=== PATIENT | male | born 1990 | race Caucasian/White ===

== ENCOUNTER 2018-10-18 11:00 | Day surgery (SDC) | payer OTHER ==
[~2018-10-18] VITALS: Ht 167.6 cm; Wt 105.6 kg
[2018-10-18 11:52] VITALS: Ht 167.6 cm; Wt 105.6 kg
[2018-10-18 11:55] VITALS: BP 113/62; PULSE 65; RESP 16
[2018-10-18] MEDS ORDERED: LACTATED RINGER'S 1,000 ML IV SCH (12:00)
[2018-10-18] MEDS ORDERED: IOHEXOL 300MG/ML 30 ML BTL ONE (12:59)
[2018-10-18] MEDS ORDERED: INDOMETHACIN 50 MG SUPP PR STA (13:02)
--- NOTE | 2018-10-18 13:23 | HPN ---
Date/Time of Note Date/Time of Note DATE: 10/18/18 TIME: 13:23 Interval H&P Admission Note Pt. seen H&P reviewed: No system changes BRET JOSEPH MD Oct 18, 2018 13:23
--- NOTE | 2018-10-18 13:40 | PREAC ---
Date/Time of Note Date/Time of Note DATE: 10/18/18 TIME: 13:38 Anesthesia Eval and Record Evaluation Time Pre-Procedure Interview DATE: 10/18/18 TIME: 13:38 Age 28 Sex male NPO: 8 hrs Preoperative diagnosis gall stones Planned procedure ercp Past Medical History Past Medical History: None Surgery & Anesthesia Issues No known issue Meds Anticoagulation: No Beta Angelica within 24 hr: No Reason Beta Angelica not given: Pt. not on B-Angelica No Active Prescriptions or Reported Meds Current Medications Lactated Ringer's 1,000 ml @ 0 mls/hr Q0M IV Last administered on 10/18/18at 12:07; Admin Dose 25 MLS/HR; Start 10/18/18 at 12:00 Meds reviewed: Yes Allergies Coded Allergies: No Known Allergy (Unverified , 10/18/18) Allergies Reviewed: Yes Labs/Studies Labs Reviewed: Reviewed by anesthesiologist Result Diagram: 10/18/18 1130 10/18/18 1130 Laboratory Tests 10/18/18 11:30 test: N/A Pre-procedure Exam Last vitals Vital Signs Date Temp Pulse Resp B/P (MAP) Pulse Ox O2 O2 Flow FiO2 Time Delivery Rate 10/18/18 98.4 65 16 113/62 97 Room Air 11:55 (79) Airway: Adequate mouth opening Mallampati: Mallampati I Teeth: Normal Lung: Normal Heart: Normal Anticipated Difficutly with IV: Anticipate Difficult IV Access ASA Physical Status ASA physical status: 1 Emergency: None Planned Anesthetic General/MAC: ETT Pre-operative Attestations Prior to commencing anesthesia and surgery, the patient was re-evaluated, there was verification of: *The patient's identity *The results of appropriate recent lab work and preoperative vital signs *The above evaluation not changing prior to induction *Anesthetic plan, risk benefits, alternative and complications discussed with patient/family; questions answered; patient/family understands, accepts and wishes to proceed. CHERYL LORENZO MD Oct 18, 2018 13:40
[2018-10-18] MEDS ORDERED: CEFAZOLIN 1 GM INJ ONE (14:00)
[2018-10-18] MEDS ORDERED: DESFLURANE 15 MIN ONE (14:00)
[2018-10-18] MEDS ORDERED: PROPOFOL 20 ML ONE (14:02)
[2018-10-18] MEDS ORDERED: MIDAZOLAM 1 MG/ML 2 ML INJ ONE (14:02)
[2018-10-18] MEDS ORDERED: FENTAnyl 50 MCG/ML VIAL ONE ×2 (14:02→14:46)
[2018-10-18] MEDS ORDERED: ROCURONIUM 50 MG INJ ONE (14:02)
[2018-10-18] MEDS ORDERED: GLUCAGON 1 MG INJ ONE ×2 (14:30→14:35)
[2018-10-18] MEDS ORDERED: SUGAMMADEX SODIUM 200 MG/2 ML VIAL IV ONE (15:20)
[2018-10-18 15:35] VITALS: BP 149/90; PULSE 83; RESP 16
--- NOTE | 2018-10-18 15:35 | PAC ---
Date/Time of Note Date/Time of Note DATE: 10/18/18 TIME: 15:34 Post-Anesthesia Notes Post-Anesthesia Note Last documented vital signs Vital Signs Date Temp Pulse Resp B/P (MAP) Pulse Ox O2 O2 Flow FiO2 Time Delivery Rate 10/18/18 98.4 65 16 113/62 97 Room Air 11:55 (79) Activity: WNL Respiratory function: WNL Cardiovascular function: WNL Mental status: Baseline Pain reasonably controlled: Yes Hydration appropriate: Yes Nausea/Vomiting absent: Yes CHERYL LORENZO MD Oct 18, 2018 15:35
[2018-10-18] MEDS ORDERED: MEPERIDINE 25 MG INJ IV PRN (16:00)
[2018-10-18] MEDS ORDERED: ONDANSETRON 4 MG INJ IV PRN (16:00)
[2018-10-18] MEDS ORDERED: EPHEDrine 25 MG/5 ML SYG IV PRN (16:00)
[2018-10-18] MEDS ORDERED: MIDAZOLAM 1 MG/ML 2 ML INJ IV PRN (16:00)
[2018-10-18] MEDS ORDERED: OXYCODONE/ACETAMINOPHEN (5/325) TAB PO PRN ×2 (16:00)
[2018-10-18] MEDS ORDERED: DIPHENHYDRAMINE 50 MG INJ IV PRN (16:00)
[2018-10-18] MEDS ORDERED: ALBUTEROL 0.083% (NEB) 2.5 MG/3 ML AMP HHN PRN (16:00)
[2018-10-18] MEDS ORDERED: LABETALOL HCL 20MG INJ IV PRN (16:00)
[2018-10-18] MEDS ORDERED: FENTAnyl 50 MCG/ML VIAL IV PRN ×3 (16:00)
[2018-10-18] MEDS ORDERED: HYDROmorphONE 1 MG/5 ML IV SYRINGE IV PRN ×3 (16:00)
[2018-10-18] MEDS ORDERED: IPRATROPIUM (NEB) 0.5 MG/2.5 ML AMP HHN PRN (16:00)
[2018-10-18] MEDS ORDERED: TRIMETHOBENZAMIDE 100 MG/ML VIAL IM PRN (16:00)
[2018-10-18] MEDS ORDERED: hydrALAzine 20 MG INJ IV PRN (16:00)
--- NOTE | 2018-10-18 17:18 | RADRPT ---
Vent Rate: 54 bpm RR Interval: 1100 msec IA Interval: 159 msec QRS Duration: 94 msec QT Interval: 390 msec QTC Interval: 372 msec P-R-T Moon: 62 - 44 - 44 degrees Sinus rhythm...normal P axis, V-rate 50- 99 ST elev, probable normal early repol pattern...ST elevation, age<55 Electronically Signed By: Messi Denton
[2018-10-18 18:15] VITALS: BP 108/67; PULSE 63; RESP 18
--- NOTE | 2018-10-19 02:47 | GILP ---
DATE OF PROCEDURE: 10/18/2018 PROCEDURE: ERCP removal of the pancreatic stent, bile duct stent and dilation of the ampulla. INDICATION: A 28-year-old male undergoing this procedure for the removal of the pancreatic stent beatriz e duct stent and evaluation of the biliary system to make sure no stone is left behind. INFORMED CONSENT: The risk of the procedure, related and unrelated complications, anesthetic risks, alternatives discussed including bleeding, perforation, pancreatitis, severity of the pancreatitis. The patient understood and gave informed consent. DESCRIPTION OF PROCEDURE: The patient was brought to the OR room #1, intubated and placed in prone p osition, was given Indocin suppository and also given antibiotic. After optimal sedation, scope was passed with much ease into the esophagus and advanced further down into stomach and duodenum. The st ent was identified, both pancreatic and bile duct stent. Both the stents were removed by one by one. After that, we tried to cannulate the bile duct. Though the stent was removed, bile was coming out , but the whole thing was angulated intrapapillary portion of the bile duct would not allow the passa ge of the wire. The wire twice had gone into the pancreatic duct. So, a single pigtail pancreatic s tent was deployed. It would go easily into the pancreatic duct, but somehow the tip of the stent got stuck in the scope and would not come out. So at this point, we decided to cannulate the bile duct separately. The bile duct was cannulated with good cholangiogram obtained and definitely there was a stricture in the intrapapillary portion of the bile duct. This stricture was dilated with a 10 mm H urricane balloon 8.4. We used just 4 mm until the base was reduced and the Hurricane balloon w as removed. Excellent drainage established. There was no leakage of dye. Since patient had good pa ncreatic sphincterotomy and large pancreatic stent was placed, the opening was wide open and decided at this point not to place a pancreatic stent. Scope was removed with good patient tolerance. IMPRESSION: 1. Stricture of the intrapapillary portion of the bile duct, successfully dilated with Hurricaine ba lloon 10 mm only up to 4 . 2. Removal of the pancreatic stent. 3. Removal of the bile duct stent. PLAN: Monitor LFT and also for any abdominal pain or pancreatitis. In the interim, the patient will be given large quantity of fluid. Dictated By: BRET LEONARD/MONIKA Conf#: [id number] DID#: [id number]
== END 2018-10-18 19:06 | disposition home or self-care (01) ==
LOC: GIL 11:00 → SDS 11:00 → GIL 19:06
PROVIDERS: ATTEND Internal Medicine Gastroenterology
DX: K83.1 Obstruction of bile duct (principal); Z46.59 Encounter for fitting and adjustment of other gastrointestinal appliance and device
CPT/HCPCS: 43275; 43277; 74330; 80053; 85025; 85610; 85730; 93005; C2617; J1610; J2250; J3010; Q9967; Z7512; Z7610; J0690